=== PATIENT | male | born 1975 | race Caucasian/White ===

== ENCOUNTER 2022-06-02 19:32 | Emergency (ER) | payer OTHER, SELFPAY ==
[2022-06-02] MEDS ORDERED: Lidocaine 1% (PF) 30 ML VIAL ONE (19:40)
[2022-06-02] MEDS ORDERED: Boostrix 0.5 ML (Tdap) VIAL (>/=7 yrs of age) ONE (19:41)
[2022-06-02] MEDS ORDERED: Bacitracin 1 PK ONE (19:41)
== END 2022-06-02 20:35 | disposition home or self-care (01) ==
LOC: BURERS 19:32
DX: S56.425A Laceration of extensor muscle, fascia and tendon of right ring finger at forearm level, initial encounter (principal); S56.125A Laceration of flexor muscle, fascia and tendon of right ring finger at forearm level, initial encounter; I10 Essential (primary) hypertension; F17.220 Nicotine dependence, chewing tobacco, uncomplicated; Z23 Encounter for immunization; W25.XXXA Contact with sharp glass, initial encounter
CPT/HCPCS: 12002; 90471; 90715; J2001

== ENCOUNTER 2022-06-09 13:16 | Emergency (ER) | payer SELFPAY | END 2022-06-09 13:33 | disposition home or self-care (01) | LOC: BURERS 13:16 | DX: S61.214D Laceration without foreign body of right ring finger without damage to nail, subsequent encounter (principal); I10 Essential (primary) hypertension; F17.220 Nicotine dependence, chewing tobacco, uncomplicated | CPT/HCPCS: 99282 ==

== ENCOUNTER 2022-06-13 13:58 | Emergency (ER) | payer SELFPAY | END 2022-06-13 14:24 | disposition home or self-care (01) | LOC: BURERS 13:58 | DX: S61.214D Laceration without foreign body of right ring finger without damage to nail, subsequent encounter (principal); Z48.02 Encounter for removal of sutures; F17.220 Nicotine dependence, chewing tobacco, uncomplicated ==